=== PATIENT | female | born 1940 | race African-American/Black ===

== ENCOUNTER 2018-04-26 01:18 | Observation (INO) | payer BC ==
[2018-04-26] MEDS ORDERED: LORazepam 2 MG/ML VIAL ONE (02:16)
[2018-04-26] MEDS ORDERED: LEVETIRACETAM 500 MG/5 ML VIAL IV ONE (02:16)
[2018-04-26] MEDS ORDERED: NA CHLORIDE 0.9% 1,000 ML ONE (02:17)
[2018-04-26] MEDS ORDERED: NA CHLORIDE 0.9% 100 ML IV ONE (02:24)
[2018-04-26 02:36] LABS: Absolute Lymphocytes (CBC) 1.5 K/uL (0.7-4.9); Absolute Monocytes 0.5 K/uL (0.1-1.3); Absolute Neutrophil 2.7 K/uL (1.8-8.0); Basophils % 1.6 % (0-1.3); Eosinophils % 4.1 % (0-4.4); Hematocrit 37.2 % (36.0-45.0); Lymphocytes % 30.1 % (15.3-44.8); MCH 31.2 pg (27.0-35.0); MCV 93.6 fL (80-100); MPV 7.9 fL (7.6-11.3); Monocytes % 9.9 % (3.3-12.3); RBC Red Blood Cell Count 3.97 M/uL (3.86-4.86)
[2018-04-26 02:39] LABS: Protime INR 1.31
[2018-04-26 03:12] LABS: ALT/SGPT 14 U/L (12-78); AST/SGOT 11 U/L (15-37); Albumin 3.2 g/dL (3.4-5.0); Alkaline Phosphatase 106 U/L (45-117); BUN Blood Urea Nitrogen 14 mg/dL (7-18); Bicarbonate 32 mmol/L (21-32); Bilirubin Direct 0.1 mg/dL (0-0.2); Bilirubin Total 0.6 mg/dL (0.2-1.0); CKMB Creatine Kinase MB < 1.0 ng/mL (0.3-3.6); Creatine Phosphokinase 34 U/L (26-192); Glucose Level 105 mg/dL (74-106); Lipase 148 U/L (73-393); Magnesium 2.4 mg/dL (1.8-2.4); Potassium 3.4 mmol/L (3.5-5.1); Protein, Total 8.4 g/dL (6.4-8.2); Sodium Level 135 mmol/L (136-145)
--- NOTE | 2018-04-26 03:21 | EDPHYS ---
Physician Documentation [facility] Name: Domonique Herman Age: 77 yrs Sex: Female : 1940 Arrival Date: 04/26/2018 Time: 01:27 Bed 5 Private MD: Nikolas Stanley HPI: 04/26 01:59 This 77 yrs old Black Female presents to ER via EMS with complaints of Seizure. lesly 01:59 The patient presents after having a single isolated seizure, that lasted 10 minute(s), lesly with a history of multiple seizures, a total of 2. Character of seizure(s): Loss of consciousness: the patient experienced loss of consciousness, Motor activity: generalized, Incontinence: none, Apnea: the patient did not experience apnea. Seizure onset: just prior to arrival, 8 hour(s) ago. Context: the seizure(s) was witnessed, by family, daughter. Seizure Hx: Last seizure: The patient's last seizure was approximately 2 day(s) ago. Associated injury: The patient did not suffer any apparent associated injury. Current symptoms: Currently, the patient is not experiencing any symptoms, the patient feels back to baseline. The patient has not experienced similar symptoms in the past. Historical: - Allergies: 02:37 No Known Allergies; ao - Home Meds: 02:37 Keppra 100 mg/mL Oral soln 10 mL 2 times per day [Active]; Eliquis 5 mg oral tab 1 tab ao 2 times per day [Active]; aspirin 81 mg Oral chew 1 tab once daily [Active]; carvedilol 12.5 mg oral tab 1 tab 2 times per day [Active]; furosemide 40 mg Oral tab 1 tab once daily [Active]; simvastatin 40 mg Oral tab 1 tab once daily [Active]; lorazepam 0.5 mg Oral tab 1 tab 3 times per day [Active]; Januvia 100 mg oral tab 1 tab once daily [Active]; - PMHx: 02:37 Lung Cancer; Hypertension; Hyperlipidemia; CHF; Seizures; ao - PSHx: 02:37 Unable to obtain; ao - Immunization history:: Adult Immunizations unknown. - Social history:: Smoking status: Patient/guardian denies using tobacco, Patient/guardian denies using alcohol, street drugs. - Family history:: not pertinent. - Ebola Screening: : Patient negative for fever greater than or equal to 101.5 degrees Fahrenheit, and additional compatible Ebola Virus Disease symptoms Patient denies exposure to infectious person Patient denies travel to an Ebola-affected area in the 21 days before illness onset. ROS: 01:59 Constitutional: Negative for fever, chills, and weight loss, Eyes: Negative for injury, lesly pain, redness, and discharge, ENT: Negative for injury, pain, and discharge, Neck: Negative for injury, pain, and swelling, Cardiovascular: Negative for chest pain, palpitations, and edema, Respiratory: Negative for shortness of breath, cough, wheezing, and pleuritic chest pain, Abdomen/GI: Negative for abdominal pain, nausea, vomiting, diarrhea, and constipation, Back: Negative for injury and pain, : Negative for injury, bleeding, discharge, and swelling, MS/Extremity: Negative for injury and deformity, Skin: Negative for injury, rash, and discoloration, Psych: Negative for depression, anxiety, suicide ideation, homicidal ideation, and hallucinations, Allergy/Immunology: Negative for hives, rash, and allergies, Endocrine: Negative for neck swelling, polydipsia, polyuria, polyphagia, and marked weight changes. 01:59 Neuro: Positive for seizure activity. Exam: 01:59 Constitutional: This is a well developed, well nourished patient who is awake, alert, lesly and in no acute distress. Head/Face: Normocephalic, atraumatic. Eyes: Pupils equal round and reactive to light, extra-ocular motions intact. Lids and lashes normal. Conjunctiva and sclera are non-icteric and not injected. Cornea within normal limits. Periorbital areas with no swelling, redness, or edema. ENT: Nares patent. No nasal discharge, no septal abnormalities noted. Tympanic membranes are normal and external auditory canals are clear. Oropharynx with no redness, swelling, or masses, exudates, or evidence of obstruction, uvula midline. Mucous membranes moist. Neck: Trachea midline, no thyromegaly or masses palpated, and no cervical lymphadenopathy. Supple, full range of motion without nuchal rigidity, or vertebral point tenderness. No Meningismus. Chest/axilla: Normal chest wall appearance and motion. Nontender with no deformity. No lesions are appreciated. Cardiovascular: Regular rate and rhythm with a normal S1 and S2. No gallops, murmurs, or rubs. Normal PMI, no JVD. No pulse deficits. Respiratory: Lungs have equal breath sounds bilaterally, clear to auscultation and percussion. No rales, rhonchi or wheezes noted. No increased work of breathing, no retractions or nasal flaring. Abdomen/GI: Soft, non-tender, with normal bowel sounds. No distension or tympany. No guarding or rebound. No evidence of tenderness throughout. Back: No spinal tenderness. No costovertebral tenderness. Full range of motion. Female : Normal external genitalia. Skin: Warm, dry with normal turgor. Normal color with no rashes, no lesions, and no evidence of cellulitis. MS/ Extremity: Pulses equal, no cyanosis. Neurovascular intact. Full, normal range of motion. Neuro: Awake and alert, GCS 15, oriented to person, place, time, and situation. Cranial nerves II-XII grossly intact. Motor strength 5/5 in all extremities. Sensory grossly intact. Cerebellar exam normal. Normal gait. Psych: Awake, alert, with orientation to person, place and time. Behavior, mood, and affect are within normal limits. Vital Signs: 01:29 BP 152 / 82; Pulse 77; Resp 20; Temp 98.1(O); Pulse Ox 99% on 2 lpm NC; Pain 0/10; ao 03:21 BP 150 / 60; Pulse 79; Resp 16; Pulse Ox 99% on 2 lpm NC; Pain 0/10; ao 03:40 BP 134 / 76; Pulse 77; Resp 19; Pulse Ox 100% on 2 lpm NC; ao Loida Coma Score: 02:39 Eye Response: spontaneous(4). Verbal Response: confused(4). Motor Response: localizes ao pain(5). Total: 13. MDM: 01:45 Patient medically screened. [facility] 02:02 Data reviewed: vital signs, nurses notes, lab test result(s), EKG, radiologic studies, [facility] CT scan, plain films. 04/26 01:59 Order name: Basic Metabolic Panel; Complete Time: 03:20 lesly 04/26 01:59 Order name: CBC with Diff; Complete Time: 02:55 [facility] 04/26 01:59 Order name: Ckmb; Complete Time: 03:20 [facility] 04/26 01:59 Order name: CPK; Complete Time: 03:20 [facility] 04/26 01:59 Order name: LFT's; Complete Time: 03:20 [facility] 04/26 01:59 Order name: Magnesium; Complete Time: 03:20 [facility] 04/26 01:59 Order name: PT-INR; Complete Time: 02:55 [facility] 04/26 01:59 Order name: Ptt, Activated; Complete Time: 02:55 [facility] 04/26 01:59 Order name: Troponin (emerg Dept Use Only); Complete Time: 03:11 [facility] 04/26 01:59 Order name: XRAY Chest (1 view) [facility] 04/26 01:59 Order name: Lipase; Complete Time: 03:20 [facility] 04/26 01:59 Order name: Urine Culture [facility] 04/26 02:03 Order name: CT Head Brain wo Cont [facility] 04/26 03:18 Order name: Urine Dipstick--Ancillary (enter results) 04/26 01:59 Order name: EKG; Complete Time: 02:00 [facility] 04/26 01:59 Order name: Cardiac monitoring; Complete Time: 02:10 [facility] 04/26 01:59 Order name: EKG - Nurse/Tech; Complete Time: 02:52 [facility] 04/26 01:59 Order name: IV Saline Lock; Complete Time: 02:10 [facility] 04/26 01:59 Order name: Labs collected and sent; Complete Time: 02:27 [facility] 04/26 01:59 Order name: O2 Per Protocol; Complete Time: 02:10 [facility] 04/26 01:59 Order name: O2 Sat Monitoring; Complete Time: 02:10 [facility] 04/26 01:59 Order name: Urine Dipstick-Ancillary (obtain specimen); Complete Time: 03:18 [facility] 04/26 02:03 Order name: Seizure Precautions; Complete Time: 02:10 [facility] 04/26 03:27 Order name: CONS Physician Consult EDMS Administered Medications: 02:27 Drug: Ativan 0.5 mg Route: IVP; Site: right antecubital; ao 03:30 Follow up: Response: No adverse reaction ao 02:29 Drug: NS 0.9% 1000 ml Route: IV; Rate: 125 ml/hr; Site: right antecubital; ao 03:31 Follow up: IV Status: Infusion continued upon admission ao 02:30 Drug: Keppra 1000 mg Route: IV; Rate: per protocol; Site: right antecubital; ao 03:30 Follow up: IV Status: Completed infusion; IV Intake: 100ml ao 03:29 Drug: Rocephin - (cefTRIAXone) 1 grams Route: IVPB; Infused Over: 30 mins; Site: right ao antecubital; 04:00 Follow up: IV Status: Completed infusion ao 03:29 Drug: Potassium Chloride 20 mEq Route: PO; ao 04:00 Follow up: Response: No adverse reaction ao Disposition: 04/26/18 03:20 Hospitalization ordered by Jaime Holden for Observation. Preliminary diagnosis are Epilepsy and recurrent seizures, Weakness, Non-ST elevation (NSTEMI) myocardial infarction, Hypokalemia, Cystitis. - Bed requested for Telemetry/MedSurg (Inpatient). - Status is Observation. ao - Condition is Fair. - Problem is new. - Symptoms have improved. UTI on Admission? No Signatures: Dispatcher [employer] EDMS Belinda Gurrola RN RN mw Anderson, Corey, MD MD cha Ortiz, Alex, RN RN ao Corrections: (The following items were deleted from the chart) 03:23 03:20 Hospitalization Ordered by Jaime Holden MD for Observation. Preliminary lesly diagnosis is Epilepsy and recurrent seizures; Weakness; Non-ST elevation (NSTEMI) myocardial infarction. Bed requested for Telemetry/MedSurg (Inpatient). Status is Observation. Condition is Fair. Problem is new. Symptoms have improved. UTI on Admission? No. lesly 03:33 03:23 04/26/2018 03:20 Hospitalization Ordered by Jaime Holden MD for Observation. latrice Preliminary diagnosis is Epilepsy and recurrent seizures; Weakness; Non-ST elevation (NSTEMI) myocardial infarction; Hypokalemia; Cystitis. Bed requested for Telemetry/MedSurg (Inpatient). Status is Observation. Condition is Fair. Problem is new. Symptoms have improved. UTI on Admission? No. lesly 04:25 03:33 04/26/2018 03:20 Hospitalization Ordered by Jaime Holden MD for Observation. ao Preliminary diagnosis is Epilepsy and recurrent seizures; Weakness; Non-ST elevation (NSTEMI) myocardial infarction; Hypokalemia; Cystitis. Bed requested for Telemetry/MedSurg (Inpatient). Status is Observation. Condition is Fair. Problem is new. Symptoms have improved. UTI on Admission? No. latrice
--- NOTE | 2018-04-26 03:21 | ER ---
Nurse's Notes [facility] Name: Domonique Herman Age: 77 yrs Sex: Female : 1940 Arrival Date: 04/26/2018 Time: :27 Bed 5 Private MD: Diagnosis: Epilepsy and recurrent seizures;Weakness;Non-ST elevation (NSTEMI) myocardial infarction;Hypokalemia;Cystitis Presentation: 04/26 01:27 Presenting complaint: EMS states: Family report a history of seizure and tonight she ao had two seizures and family was worried about her. Patient has a history of lung cancer. Transition of care: patient was not received from another setting of care. Onset of symptoms is unknown. Risk Assessment: Do you want to hurt yourself or someone else? Patient reports no desire to harm self or others. Care prior to arrival: None. :27 Method Of Arrival: EMS: [facility] ao 01:27 Acuity: RIMA 2 ao 02:38 Initial Sepsis Screen: Does the patient meet any 2 criteria? No. Patient's initial ao sepsis screen is negative. Does the patient have a suspected source of infection? No. Patient's initial sepsis screen is negative. Triage Assessment: 02:39 General: Appears in no apparent distress. ao Historical: - Allergies: 02:37 No Known Allergies; ao - Home Meds: 02:37 Keppra 100 mg/mL Oral soln 10 mL 2 times per day [Active]; Eliquis 5 mg oral tab 1 tab ao 2 times per day [Active]; aspirin 81 mg Oral chew 1 tab once daily [Active]; carvedilol 12.5 mg oral tab 1 tab 2 times per day [Active]; furosemide 40 mg Oral tab 1 tab once daily [Active]; simvastatin 40 mg Oral tab 1 tab once daily [Active]; lorazepam 0.5 mg Oral tab 1 tab 3 times per day [Active]; Januvia 100 mg oral tab 1 tab once daily [Active]; - PMHx: 02:37 Lung Cancer; Hypertension; Hyperlipidemia; CHF; Seizures; ao - PSHx: 02:37 Unable to obtain; ao - Immunization history:: Adult Immunizations unknown. - Social history:: Smoking status: Patient/guardian denies using tobacco, Patient/guardian denies using alcohol, street drugs. - Family history:: not pertinent. - Ebola Screening: : Patient negative for fever greater than or equal to 101.5 degrees Fahrenheit, and additional compatible Ebola Virus Disease symptoms Patient denies exposure to infectious person Patient denies travel to an Ebola-affected area in the 21 days before illness onset. Screenin:38 Abuse screen: Denies threats or abuse. Denies injuries from another. Nutritional ao screening: No deficits noted. Tuberculosis screening: No symptoms or risk factors identified. Fall Risk Fall in past 12 months (25 points). Assessment: 02:00 General: Appears in no apparent distress. comfortable, Behavior is calm, listless, ao quiet. Pain: Denies pain. Neuro: Level of Consciousness is awake, confused, Oriented to person, Weakness Speech is normal. Cardiovascular: Capillary refill is > 3 seconds Patient's skin is warm and dry. Respiratory: Airway is patent Respiratory effort is even, unlabored, Respiratory pattern is regular, symmetrical. GI: Abdomen is obese. : No signs and/or symptoms were reported regarding the genitourinary system. EENT: No signs and/or symptoms were reported regarding the EENT system. Derm: Skin is intact, Skin temperature is warm. Musculoskeletal: Circulation, motion, and sensation intact. Range of motion: limited in all extremities. 03:21 Reassessment: Patient appears in no apparent distress at this time. Patient and/or ao family updated on plan of care and expected duration. Pain level reassessed. Obtained urine. Vital Signs: 01:29 BP 152 / 82; Pulse 77; Resp 20; Temp 98.1(O); Pulse Ox 99% on 2 lpm NC; Pain 0/10; ao 03:21 BP 150 / 60; Pulse 79; Resp 16; Pulse Ox 99% on 2 lpm NC; Pain 0/10; ao 03:40 BP 134 / 76; Pulse 77; Resp 19; Pulse Ox 100% on 2 lpm NC; ao Loida Coma Score: 02:39 Eye Response: spontaneous(4). Verbal Response: confused(4). Motor Response: localizes ao pain(5). Total: 13. ED Course: 01:27 Patient arrived in ED. ao 01:29 Triage completed. ao 01:30 Arm band placed on right wrist. Patient placed in an exam room, on a stretcher, on ao oxygen, Patient notified of wait time. 01:45 Nikolas Puente MD is Attending Physician. lesly 01:50 Inserted saline lock: 22 gauge in right antecubital area, using aseptic technique. [id number] Blood collected. 01:54 Navarro Reyes, RN is Primary Nurse. ao 02:25 Initial lab(s) drawn, by me, sent to lab. ks6 02:38 Fall risk band placed. Placed in gown. Bed in low position. Call light in reach. Side ao rails up X2. Adult w/ patient. Seizure precautions initiated. occupational therapy asst on. Pulse ox on. NIBP on. 02:49 Patient moved to radiology via stretcher. kw 02:49 X-ray completed. Patient tolerated procedure well. kw 02:[address] via stretcher. kw 02:51 XRAY Chest (1 view) In Process Unspecified. EDMS 03:08 CT Head Brain wo Cont In Process Unspecified. EDMS 03:19 Jaime Holden MD is Hospitalizing Provider. lesly 03:19 Straight cath inserted, using sterile technique, 16 Fr. ao 04:22 No provider procedures requiring assistance completed. Patient admitted, IV remains in ao place. Administered Medications: 02:27 Drug: Ativan 0.5 mg Route: IVP; Site: right antecubital; ao 03:30 Follow up: Response: No adverse reaction ao 02:29 Drug: NS 0.9% 1000 ml Route: IV; Rate: 125 ml/hr; Site: right antecubital; ao 03:31 Follow up: IV Status: Infusion continued upon admission ao 02:30 Drug: Keppra 1000 mg Route: IV; Rate: per protocol; Site: right antecubital; ao 03:30 Follow up: IV Status: Completed infusion; IV Intake: 100ml ao 03:29 Drug: Rocephin - (cefTRIAXone) 1 grams Route: IVPB; Infused Over: 30 mins; Site: right ao antecubital; 04:00 Follow up: IV Status: Completed infusion ao 03:29 Drug: Potassium Chloride 20 mEq Route: PO; ao 04:00 Follow up: Response: No adverse reaction ao Intake: 03:30 IV: 100ml; Total: 100ml. ao Outcome: 03:20 Decision to Hospitalize by Provider. lesly 04:24 Admitted to Med/surg accompanied by tech, room 229, with oxygen, with chart, Report ao called to DAYANA Coffman 04:24 Condition: stable 04:24 Instructed on the need for admit. 04:25 Patient left the ED. ao Signatures: Dispatcher [employer] EDNikolas Estrada MD MD cha Whitley, Kimberlee kw Ortiz, Alex, RN RN ao Stevenson, Kyle Corrections: (The following items were deleted from the chart) 02:26 02:25 Inserted saline lock: 22 gauge in right antecubital area, using aseptic ks6 technique. Blood collected. : 02:25 Initial lab(s) drawn, by me, sent to lab. ks
[2018-04-26] MEDS ORDERED: CEFTRIAXONE/SWI 1gm 1 GM/10 ML SYR ONE (03:27)
[2018-04-26] MEDS ORDERED: POTASSIUM CL SA 10 MEQ TAB PO ONE ×2 (03:27→08:07)
[2018-04-26] MEDS ORDERED: D50W 25 GM/50 ML SYRINGE IV PRN (03:29)
[2018-04-26] MEDS ORDERED: GLUCAGON 1 MG/VIAL IM PRN (03:29)
[2018-04-26] MEDS: NA CHLORIDE 0.9% 1,000 ML IV SCH ×3 (04:00→21:49)
[2018-04-26] MEDS ORDERED: ONDANSETRON 4 MG/2 ML VIAL IV PRN (04:01)
[2018-04-26] MEDS ORDERED: ALPRAZOLAM 0.25 MG TABLET PO PRN (04:01)
[2018-04-26] MEDS ORDERED: ACETAMINOPHEN 500 MG TAB PO PRN (04:01)
[2018-04-26 05:29] LABS: Urine Blood 3+ (NEG); Urine Glucose TRACE (NEG); Urine Protein 1+ (NEG); Urine Specific Gravity 1.025 (1.005-1.030); Urine pH 5.5 (5.0-7.0)
[2018-04-26] MEDS ORDERED: CARVEDILOL 12.5 MG TAB PO SCH (06:00)
--- NOTE | 2018-04-26 06:36 | EKG ---
Test Date: 2018-04-26 Test Time: 02:54:33 Toxicologist: SUSY MEASUREMENT RESULTS: Intervals: Rate: 80 MI: 228 QRSD: 102 QT: 390 QTc: 449 Strunk: P: 63 MI: 228 QRS: 5 T: 54 INTERPRETIVE STATEMENTS: Sinus rhythm with 1st degree AV block with premature atrial complexes Low voltage QRS Borderline ECG No previous ECG available for comparison Electronically Signed On 04-26-18 06:35:49 CDT by Wade High
--- NOTE | 2018-04-26 07:11 | P.HP ---
Certification for Inpatient Patient admitted to: Observation With expected LOS: <2 Midnights Patient will require the following post-hospital care: None Practitioner: I am a practitioner with admitting privileges, knowledge of patient current condition, hospital course, and medical plan of care. Services: Services provided to patient in accordance with Admission requirements found in Title 42 Section 412.3 of the Code of Federal Regulations Patient History Date of Service: 04/26/18 Reason for admission: Seizures History of Present Illness: Patient is a 77-year-old female who comes here from [place]. Patient has a history of seizure disorder which was diagnosed a year ago. At that time she had been found have lung cancer and was treated with chemotherapy and radiation. She did well with her treatment and apparently according to the daughters she has been cured. She has been on anti epileptics for this seizure disorder which started a year ago. She was visiting from [place] this past week. She started having seizures on Monday. They notified her physician. This seizures continued through last night so they brought her into the emergency room for evaluation. At this time will go ahead and work her up with EEG and MRI. Patient is claustrophobic so will sifter and miller some Ativan prior to the MRI. Consultation with Neurology as well. Currently patient is lethargic after being given medication for her seizures. Most of the history was obtained from her 2 daughters who are at bedside. Allergies No Known Allergies Allergy (Verified 04/26/18 05:50) Home Medications: Apixaban [Eliquis] 5 mg PO DAILY 04/26/18 Aspirin 1 pill PO DAILY 04/26/18 Carvedilol [Coreg*] 1 pill PO DAILY 04/26/18 Furosemide 1 pill PO DAILY 04/26/18 Lacosamide [Vimpat] 5 ml PO BID 04/26/18 Levetiracetam [Keppra] 100 mg PO BID 04/26/18 Potassium Chloride [Klor-Con 10] 1 pill PO DAILY 04/26/18 Simvastatin 1 pill PO BEDTIME 04/26/18 Sitagliptin Phosphate [Januvia] 100 mg PO DAILY 04/26/18 - Past Medical/Surgical History Diabetic: Yes -: Lung CA -: hyperlipidemia -: HTN -: seizure disorder -: DM Past Surgical History: Unable to obtain - Family History Father Family History: Reviewed- Non-Contributory - Social History Smoking Status: Former smoker Alcohol use: No CD- Drugs: No Caffeine use: No Place of Residence: Home Review of Systems 10-point ROS is otherwise unremarkable Physical Examination - Vital Signs Temperature: 97.1 F Blood Pressure: 129/69 Pulse: 79 Respirations: 16 Pulse Ox (%): 99 - Physical Exam General: Alert, In no apparent distress, Oriented x3 HEENT: Atraumatic, PERRLA, Mucous membr. moist/pink, EOMI, Sclerae nonicteric Neck: Supple, 2+ carotid pulse no bruit, No LAD, Without JVD or thyroid abnormality Respiratory: Clear to auscultation bilaterally, Normal air movement Cardiovascular: Regular rate/rhythm, Normal S1 S2, No murmurs Gastrointestinal: Normal bowel sounds, Soft and benign, Non-distended, No tenderness Musculoskeletal: No clubbing, No swelling, No tenderness Integumentary: No rashes Neurological: Normal gait, Normal speech, Normal strength at 5/5 x4 extr, Normal tone, Sensation intact, Cranial nerves 3-12 intact, Normal affect Lymphatics: No axilla or inguinal lymphadenopathy - Studies Laboratory Data (last 24 hrs) 04/26/18 01:50: PT 15.5 H, INR 1.31, APTT 33.2 04/26/18 01:50: WBC 4.9, Hgb 12.4, Hct 37.2, Plt Count 140 L 04/26/18 01:50: Sodium 135 L, Potassium 3.4 L, BUN 14, Creatinine 0.70, Glucose 105, Magnesium 2.4, Total Bilirubin 0.6, AST 11 L, ALT 14, Alkaline Phosphatase 106, Lipase 148 Assessment & Plan - Problems (Diagnosis) (1) Status epilepticus Current Visit: Yes Status: Acute (2) History of lung cancer Current Visit: Yes Status: Acute (3) History of hypertension Current Visit: Yes Status: Acute (4) History of diabetes mellitus Current Visit: Yes Status: Acute - Plan Plan: 1. Resume anti epileptics. 2. EEG and MRI 3. Gentle hydration 4. Monitor for infection 5. History of lung cancer need to rule out metastasis to the brain 6. Monitor blood pressure and blood sugar closely 7. Discuss with patient regarding history of anti coagulation use 8. Ativan as needed for MRI 9. GI and DVT prophylaxis Discharge Plan: Home Plan to discharge in: 48 Hours - Advance Directives Does patient have a Living Will: No Does patient have a Durable POA for Healthcare: No - Code Status/Comfort Care Code Status Assessed: Yes Code Status: Full Code Time Spent Managing PTS Care (In Minutes): 50
[2018-04-26] MEDS ORDERED: LORazepam 2 MG/ML VIAL IV PRN (07:15)
[2018-04-26] MEDS: INSULIN -REGULAR HUMAN 50 UNIT/0.5 ML ML SQ SCH ×4 (07:30→21:00)
[2018-04-26] MEDS ORDERED: LORazepam 2 MG/ML VIAL IV ONE (08:24)
--- NOTE | 2018-04-26 08:44 | RAD REPORT ---
EXAM DESCRIPTION: RAD - Chest Single View - 04/26/2018 2:51 am CLINICAL HISTORY: COUGH Chest pain. COMPARISON: No comparisons FINDINGS: Portable technique limits examination quality. The lungs are grossly clear. The heart is normal in size. No displaced fractures.Left-sided port cath eter its tip in the SVC. IMPRESSION: No acute intrathoracic process suspected.
--- NOTE | 2018-04-26 08:45 | RAD REPORT ---
EXAM DESCRIPTION: CT - Head Brain Wo Cont - 04/26/2018 6:53 am CLINICAL HISTORY: SEIZURE History of lung carcinoma. COMPARISON: No comparisons TECHNIQUE: All CT scans are performed using dose optimization technique as appropriate and may inclu de automated exposure control or mA/KV adjustment according to patient size. FINDINGS: No intracranial hemorrhage, hydrocephalus or extra-axial fluid collection.Mild generalized brain atrophy is present with mild periventricular and deep white matter chronic microvascular [place] changes.No areas of brain edema or evidence of midline shift. Chronic opacification left sphenoid sinus suspected. The paranasal sinuses and mastoids are otherwise clear. The calvarium is intact. Right globe prosthesis. IMPRESSION: No acute intracranial abnormality.
[2018-04-26 08:51] LABS: CKMB Creatine Kinase MB < 1.0 ng/mL (0.3-3.6); Creatine Phosphokinase 31 U/L (26-192)
[2018-04-26] MEDS ORDERED: APIXABAN 5 MG TABLET PO SCH (09:00)
[2018-04-26] MEDS: LACOSAMIDE PO SCH ×2 (09:00→21:00)
[2018-04-26] MEDS ORDERED: ENOXAPARIN 40 MG/0.4 ML SQ SCH (09:00)
[2018-04-26] MEDS ORDERED: FUROSEMIDE 20 MG TABLET PO SCH (09:00)
--- NOTE | 2018-04-26 10:21 | RAD REPORT ---
EXAM DESCRIPTION: MRI - Brain Wo Cont - 04/26/2018 10:02 am CLINICAL HISTORY: sz Seizure disorder. COMPARISON: Head Brain Wo Cont dated 04/26/2018 TECHNIQUE: Multi-sequence, multiplanar MR imaging of the brain was performed without contrast. FINDINGS: The examination is quite motion degraded. This significantly limits the quality of the angélica dy. Grossly, no hemorrhage, hydrocephalus, midline shift. There is questionable increased signal in the m edial left temporal lobe. Both mastoid air cells appear partially opacified with fluid. IMPRESSION: Significantly motion degraded study is submitted. Questionable increased FLAIR signal in the medial left temporal lobe seen. Bilateral mastoid fluid.
[2018-04-26] MEDS ORDERED: KCL 20 MEQ/100 mL IVPB 20 MEQ/100 ML BAG IV SCH (11:00)
--- NOTE | 2018-04-26 12:43 | ECHO ---
HEIGHT: 5 ft 5 in WEIGHT: 166 lb 6.4 oz DATE OF STUDY: 04/26/[address]: Nikolas Puente MD 2-DIMENSIONAL: YES M.MODE: YES DOPPLER: YES COLOR FLOW: YES TDS: NO PORTABLE: NO DEFINITY: NO BUBBLE STUDY: NO DIAGNOSIS: CHEST PAIN CARDIAC HISTORY: CATHERIZATION: NO SURGERY: NO PROSTHETIC VALVE: NO PACEMAKER: NO MEASUREMENTS (cm) DIASTOLIC (NORMALS) SYSTOLIC (NORMALS) IVSd 1.0 (0.6-1.2) LA Diam 3.9 (1.9-4.0) LVEF 69% LVIDd 3.7 (3.5-5.7) LVIDs 2.3 (2.0-3.5) %FS 38% LVPWd 1.2 (0.6-1.2) Ao Diam 2.7 (2.0-3.7) 2 DIMENSIONAL ASSESSMENT: RIGHT ATRIUM: NORMAL LEFT ATRIUM: NORMAL RIGHT VENTRICLE: NORMAL LEFT VENTRICLE: NORMAL TRICUSPID VALVE: NORMAL MITRAL VALVE: NORMAL PULMONIC VALVE: NORMAL AORTIC VALVE: NORMAL PERICARDIAL EFFUSION: NONE AORTIC ROOT: NORMAL LEFT VENTRICULAR WALL MOTION: NORMAL DOPPLER/COLOR FLOW: NORMAL COMMENTS: TECHNICALLY DIFFICULT STUDY. NORMAL LEFT VENTRICULAR SIZE AND FUNCTION. NO WALL MOTION ABNORMALITY. NO MITRAL VALVE PROLAPSE. TECHNOLOGIST: Willow CARIAS
[2018-04-26] MEDS: LACOSAMIDE 50 MG TABLET PO SCH ×2 (15:12→21:51)
[2018-04-26] MEDS: levETIRAcetam 500 MG TAB PO SCH ×2 (15:13→21:51)
[2018-04-26] MEDS: POTASSIUM 25 MEQ EFFERV TAB PO SCH ×2 (15:13→21:50)
[2018-04-26 16:26] LABS: CKMB Creatine Kinase MB < 1.0 ng/mL (0.3-3.6); Creatine Phosphokinase 52 U/L (26-192)
[2018-04-26] MEDS ORDERED: ATORVASTATIN 20 MG TAB PO SCH (21:00)
--- NOTE | 2018-04-27 02:16 | CON ---
Reason For Consultation: Consultation called because of seizures. History Of Present Illness: Ms. Herman is a 77-year-old patient with a history of a reported fall. No te, this history is provided by the patient's daughters who is at the bedside. This fall occurred wh ile she is in [place] where she lives over a year ago and subsequently there was seizure. The blake ent had 1 seizure while in [place] and the daughter is unable to give any details about the patient 's workup or the type of seizure, but she was put on Keppra for seizures. She has been taking just 1 00 mg twice daily of Keppra. The patient actually did well with regard to seizures until she travell ed to [place] to visit family and is planning to go to a family reunion. The patient's daughter said t hat seizure consisted of generalized shaking that lasted quite a long while, perhaps through the nigh t, and the patient was brought in to [facility] for an evaluation. Her head CT scan showed no acute ischemic or hemorrhagic change. There is mild generalized brain atrophy, chronic small vess el ischemic disease. Her brain MRI did show significant motion artifact degradation, and of note, wa s questionable increased FLAIR signal in the medial left temporal lobe. Her electrocardiogram showed sinus rhythm, voltage QRS complexes, and echocardiogram was a technically difficult study with 69% e jection fraction. Laboratory Studies: That showed essentially unremarkable complete blood count with differential, coa gulation panel was normal. Chemistries showed low potassium of 3.4. Liver function study is essenti ally unremarkable. Urine did show 3+ blood, 1+ esterase, and cultures are pending. She was diagnose d with a urinary tract infection and given 1 g of Rocephin and admitted for IV hydration and placed o n Keppra 1000 mg twice daily along with Vimpat 100 mg twice daily which she has continued and there h as been no seizure activity noted in the hospital. Daughter does note that she is somewhat sleepy bu t does react appropriately to the family, and at times when nurses come in or when she is being evalu ated, she is not going to do what is requested of her. Past Medical History: Dyslipidemia, hypertension, seizures, diabetes mellitus, lung cancer treated w ith chemo and radiation. Home Medications: Eliquis 5 mg daily, aspirin 81 mg daily, Coreg daily, furosemide 40 mg daily, Vimp at 5 mL twice daily, Keppra 1000 mg twice daily, potassium 10 mEq daily, simvastatin 40 mg daily, and Januvia 100 mg daily. Family History: Noncontributory. Social History: No current smoking, smoked in the past. Lives in [place]. No alcohol use. Review of Systems: Family denies any recent fevers or chills, nausea or vomiting. No myalgias, arthralgias, rash, weigh t change, or headache. No psychiatric issues or gastrointestinal issues. Physical Examination: Vital Signs: Blood pressure 103/58, pulse 72, respiratory rate 18, temperature 97.6, oxygen saturati on 98% via oxygen 2 L nasal cannula, weight 166 pounds, height 5 feet 5 inches, BMI 27.7. General: Ms. Youssef is resting in bed. She does answer appropriately to her name and identifies her daughter appropriately. She follows simple commands but at times refuses to follow more commands lik e just to extend the arms to be able to assess for strength, but she will pull equally well away with both arms. She did no feet, although mildly but equally well, and she is unable to fully assess str ength, coordination, and sensation. She has normal tone in the upper and lower extremities. Assessment: Ms. 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 No evidence at this time o f bleeding or brain injury and lung cancer that has been treated with chemotherapy and radiation and travel out of town from [place] and reportedly compliant with antiepileptic medications. Plan: 1.The patient should be continued on her antiepileptic medications. It is possible that the urinary tract infection lowered her seizure threshold and increased the chances of seizures, so continue wit h antibiotics as appropriate. 2.Continue with both Vimpat and Keppra as appropriate dosages as she was on prior to admission. May consider going up on Vimpat to 300 total daily. 3.The patient's daughter was counseled on the importance of medication compliance, reducing stress, treating potential infection, especially of the bladder with cranberry pills 400 mg twice daily and p ushing at least 8 glasses of water daily. When discharged, she should follow up with her neurologist in [place]. RICCARDO/COLLIN Voice ID: [id number] Report ID: [id number]
[2018-04-27 04:50] LABS: Absolute Lymphocytes (CBC) 1.3 K/uL (0.7-4.9); Absolute Monocytes 0.5 K/uL (0.1-1.3); Absolute Neutrophil 2.3 K/uL (1.8-8.0); Basophils % 0.5 % (0-1.3); Eosinophils % 4.8 % (0-4.4); Hematocrit 35.5 % (36.0-45.0); Lymphocytes % 30.4 % (15.3-44.8); MCH 30.8 pg (27.0-35.0); MCV 94.8 fL (80-100); MPV 7.6 fL (7.6-11.3); Monocytes % 11.8 % (3.3-12.3); RBC Red Blood Cell Count 3.74 M/uL (3.86-4.86)
[2018-04-27 05:01] LABS: ALT/SGPT 13 U/L (12-78); AST/SGOT 19 U/L (15-37); Alkaline Phosphatase 105 U/L (45-117); BUN Blood Urea Nitrogen 8 mg/dL (7-18); Bicarbonate 30 mmol/L (21-32); Bilirubin Total 0.8 mg/dL (0.2-1.0); Glucose Level 118 mg/dL (74-106); Magnesium 2.3 mg/dL (1.8-2.4); Phosphorus 2.8 mg/dL (2.5-4.9); Potassium 3.8 mmol/L (3.5-5.1); Protein, Total 7.9 g/dL (6.4-8.2); Sodium Level 140 mmol/L (136-145)
[2018-04-27] MEDS: INSULIN -REGULAR HUMAN 50 UNIT/0.5 ML ML SQ SCH ×3 (07:30→16:08)
--- NOTE | 2018-04-27 07:42 | EEG ---
CHART: [id number] TEST ID#: [id number] DATE OF STUDY: 04/26/2018 THE EEG WAS RECORDED PORTABLE IN THE PATIENTS ROOM ON A 17 CHANNEL MACHINE. ELECTRODES WERE APPLIED IN THE USUAL MANNER USING THE INTERNATIONAL 10-20 SYSTEM. THE WAKING BACKGROUND RHYTHM IN THIS RECORD CONSISTS OF WELL DEVELOPED AND WELL ORGANIZED WAVES OF 9 HZ., MAXIMAL IN THE POSTERIOR HEAD REGIONS WHICH ATTENUATE NORMALLY WITH EYE OPENING. LOW-VOLTAGE 18-22 HZ ACTIVITY IS EXPRESSED IN THE FRONTAL REGIONS. THERE ARE NO FOCAL OR LATERALIZING FEATURES. NO EPILEPTIFORM ACTIVITY APPEARS. SLEEP DID NOT OCCUR. HYPERVENTILATION WAS NOT PERFORMED. PHOTIC STIMULATION PRODUCED POOR DRIVING BILATERALLY. IMPRESSION: NORMAL EEG FOR THE AGE OF THE PATIENT IN [place].
[2018-04-27] MEDS ORDERED: FUROSEMIDE 40 MG TABLET PO SCH (09:00)
[2018-04-27] MEDS ORDERED: APIXABAN 5 MG TABLET PO SCH (09:00)
[2018-04-27] MEDS ORDERED: CARVEDILOL 12.5 MG TAB PO SCH (09:00)
[2018-04-27] MEDS: LACOSAMIDE PO SCH (09:00)
[2018-04-27] MEDS ORDERED: ASPIRIN 81 MG CHEWABLE TABLET PO SCH (09:00)
[2018-04-27] MEDS: POTASSIUM 25 MEQ EFFERV TAB PO SCH (10:44)
[2018-04-27] MEDS: LACOSAMIDE 50 MG TABLET PO SCH (10:44)
[2018-04-27] MEDS: levETIRAcetam 500 MG TAB PO SCH (10:44)
--- NOTE | 2018-04-27 11:13 | EKG ---
Test Date: 2018-04-27 Test Time: 02:12:59 Topographical Engineer: RT-O MEASUREMENT RESULTS: Intervals: Rate: 91 ID: QRSD: [id number] QT: 372 QTc: 457 [place]: P: ID: [id number] T: 42 INTERPRETIVE STATEMENTS: Atrial fibrillation Intraventricular conduction delay Nonspecific T wave abnormality, probably digitalis effect Abnormal ECG Compared to ECG 04/26/2018 02:54:33 T-wave abnormality now present Sinus rhythm no longer present Electronically Signed On 04-27-18 11:13:21 CDT by Wade High
[2018-04-27] MEDS ORDERED: HEPARIN 500 UNIT/5 ML SYR IV PRN (15:11)
--- NOTE | 2018-04-27 15:13 | P.SSS ---
Patient History Date of Service: 04/27/18 Primary Care Provider: PCP in [facility] Reason for admission: Seizures History of Present Illness: Patient is a 77-year-old female who comes here from [place]. Patient has a history of seizure disorder which was diagnosed a year ago. At that time she had been found have lung cancer and was treated with chemotherapy and radiation. She did well with her treatment and apparently according to the daughters she has been cured. She has been on anti epileptics for this seizure disorder which started a year ago. She was visiting from [place] this past week. She started having seizures on Monday. They notified her physician. This seizures continued through last night so they brought her into the emergency room for evaluation. At this time will go ahead and work her up with EEG and MRI. Patient is claustrophobic so will sales teacher some Ativan prior to the MRI. Consultation with Neurology as well. Currently patient is lethargic after being given medication for her seizures. Most of the history was obtained from her 2 daughters who are at bedside. Allergies No Known Allergies Allergy (Verified 04/26/18 05:50) Home Medications: Apixaban [Eliquis] 5 mg PO DAILY 04/26/18 Aspirin 1 pill PO DAILY 04/26/18 Carvedilol [Coreg*] 1 pill PO DAILY 04/26/18 Furosemide 1 pill PO DAILY 04/26/18 Levetiracetam [Keppra] 100 mg PO BID 04/26/18 Potassium Chloride [Klor-Con 10] 1 pill PO DAILY 04/26/18 Simvastatin 1 pill PO BEDTIME 04/26/18 Sitagliptin Phosphate [Januvia] 100 mg PO DAILY 04/26/18 Amox Tr/Potassium Clavulanate [Augmentin 250-62.5 Tab Chew] 1 each PO BID #10 tab.chew 04/27/18 Lacosamide [Vimpat*] 150 mg PO BID #180 tablet 04/27/18 - Past Medical/Surgical History Diabetic: Yes -: Lung CA -: hyperlipidemia -: HTN -: seizure disorder -: DM - Social History Smoking Status: Former smoker Alcohol use: No CD- Drugs: No Caffeine use: No Place of Residence: Home Review of Systems General: As per HPI Physical Examination - Vital Signs Temperature: 97.1 F Blood Pressure: 138/78 Pulse: 76 Respirations: 18 Pulse Ox (%): 97 - Physical Exam General: Alert, In no apparent distress HEENT: Atraumatic, PERRLA, Mucous membr. moist/pink, EOMI, Sclerae nonicteric Neck: Supple, 2+ carotid pulse no bruit, No LAD, Without JVD or thyroid abnormality Respiratory: Clear to auscultation bilaterally, Normal air movement Cardiovascular: Regular rate/rhythm, Normal S1 S2 Gastrointestinal: Normal bowel sounds, No tenderness Musculoskeletal: No tenderness Integumentary: No rashes Neurological: Normal gait, Normal speech, Normal strength at 5/5 x4 extr, Normal tone, Normal affect Lymphatics: No axilla or inguinal lymphadenopathy - Diagnosis (Problem(s)) (1) UTI (urinary tract infection) Current Visit: Yes Status: Acute Qualifiers: Urinary tract infection type: acute cystitis Hematuria presence: without hematuria Qualified Code(s): N30.00 - Acute cystitis without hematuria (2) Status epilepticus Onset Date: 04/26/18 Current Visit: Yes Status: Resolved (3) History of lung cancer Onset Date: 04/26/18 Current Visit: Yes Status: Chronic (4) History of hypertension Onset Date: 04/26/18 Current Visit: Yes Status: Chronic (5) History of diabetes mellitus Onset Date: 04/26/18 Current Visit: Yes Status: Chronic Treatment Summary: Overall During the hospital stay Pt remained stable. 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 MRI, CT and EEG Done here in the hospital which was negative for acute abnormality. Pt remained seziure free in the hospital. Neurology was consulted and reccs patient to continue on her antiepileptic medications with increase dose for Vimpat to 300mg Daily. It is possible that the urinary tract infection lowered her seizure threshold and increased the chances of seizures, so Patient was started on Antibiotics. The patient's daughter was counseled on the importance of medication compliance, reducing stress, treating potential infection, especially of the bladder with cranberry pills 400 mg twice daily and pushing at least 8 glasses of water daily. Pt was then Discharged home under stable condition and pt was asked to follow up with her neurologist in [place]. PO levaquin was also prescribed for UTI. Uculture was negative however it was collected after antibiotics was started. - Disposition Disposition: ROUTINE DISCHARGE Condition: GOOD Patient Discharge Instructions: Please f.u with neurologist in 1 to 2 week post discharge. New medication. Augmentin BID for 5 days. Vimpat is increased to 150mg twice daily in pill form. Do not take liquid any more. Diet: Regular Activity: Ad nanda
--- NOTE | 2018-04-28 13:36 | CON ---
Date of Consultation: 04/27/2018 Additional Admitting Physician: Irene Sagastume M.D. History Of Present Illness: She is a 77-year-old black woman with history of seizure disorder, atria l fibrillation, lives in [place]. Normally, she is undergoing chemotherapy and radiation therapy f or lung cancer. Has a history of chronic systolic congestive heart failure as well, as well history of anxiety, hypertension, dyslipidemia, and diabetes, came in with seizure. Dr. Potts was evaluat ing her. He is considering increasing one of her seizure medication Vimpat. She has had a negative MRI and negative CT of her head, normal EKG, normal chest x-ray and normal echocardiogram. Her EKGs show chronic atrial fibrillation that have been actually intermittent. The patient takes Eliquis for atrial fibrillation. Medications: Other medications include aspirin, Keppra, Abilify, Coreg, Lasix, Zocor, and pyridium. Allergies: NONE. Review of Systems: Negative. Social History: Negative. Family History: Negative. Physical Examination: Vital Signs: Stable. She was afebrile. HEENT: Negative. Neck: Supple. No bruit. Chest: Clear. Cardiac exam: Revealed a regular rhythm and rate. No murmurs, gallops, or rubs. Abdomen: Benign. Extremities: Revealed no clubbing, cyanosis, or edema. Laboratory Evaluation: Unremarkable except for a troponin of 0.11. Impression And Plan: 1.Paroxysmal atrial fibrillation. 2.History of chronic diastolic congestive heart failure. 3.Elevated troponin probably secondary to atrial fibrillation and maybe even seizure disorder. 4.History of lung cancer on chemotherapy and radiation therapy. 5.Hypertension. 6.Dyslipidemia. 7.Diabetes. I would not do anything different from a cardiovascular standpoint. She needs to remain on Eliquis a nd her beta-real. She is in normal rhythm now. We can always increase her beta real as needed . She can go home it is okay with Dr. Sagastume. NORBERT/COLLIN Voice ID: [id number] Report ID: [id number]
== END 2018-04-27 17:11 | disposition home or self-care (01) ==
LOC: ER 01:18 → ERHOLD 03:25 → 2ND 04:04
PROVIDERS: ADMIT Hospitalist; ATTEND Hospitalist
DX: N30.00 Acute cystitis without hematuria (principal); G40.901 Epilepsy, unspecified, not intractable, with status epilepticus; I10 Essential (primary) hypertension; E78.5 Hyperlipidemia, unspecified; E11.9 Type 2 diabetes mellitus without complications; Z87.891 Personal history of nicotine dependence; Z85.118 Personal history of other malignant neoplasm of bronchus and lung
CPT/HCPCS: 36415; 51702; 70450; 70551; 71045; 80048; 80053; 80076; 81003; 82550; 82553; 82962; 83690; 83735; 84100; 84132; 84484; 85025; 85610; 85730; 87086; 87088; 93005; 93306; 95816; 96361; 96365; 96368; 96375; 99285; G0378; J0696; J1642; J1953; J7030

== ENCOUNTER 2024-04-29 11:06 | Observation (INO) | payer BC ==
[2024-04-29 11:43] LABS: Absolute Eosinophils 0.1 K/uL (0-0.5); Absolute Lymphocytes (CBC) 1.2 K/uL (0.7-4.9); Absolute Monocytes 0.4 K/uL (0.1-1.3); Absolute Neutrophil 2.2 K/uL (1.8-8.0); Basophils % 0.9 % (0-1.3); Eosinophils % 1.8 % (0-4.4); Hematocrit 38.9 % (36.0-45.0); Lymphocytes % 30.6 % (15.3-44.8); MCH 30.9 pg (27.0-35.0); MCHC 33.5 g/dL (32.0-36.0); MCV 92.2 fL (80-100); MPV 7.7 fL (7.6-11.3); Monocytes % 11.2 % (3.3-12.3); Neutrophils % 55.5 % (41.7-73.7); Platelets 132 thou/uL (152-406); RBC Red Blood Cell Count 4.22 M/uL (3.86-4.86); Red Cell Distribution Width 13.8 % (12.1-15.2)
[2024-04-29] MEDS ORDERED: NA CHLORIDE 0.9% 1,000 ML ONE (11:56)
[2024-04-29 12:05] LABS: Albumin 2.9 g/dL (3.4-5.0); Albumin/Globulin Ratio 0.6 (1.1-1.8); Anion Gap 4.6 mEq/L (5.0-15.0); Bilirubin Direct 0.3 mg/dL (0-0.2); Bilirubin Indirect, Calculated 0.8 mg/dL (0.2-0.8); Bilirubin Total 1.1 mg/dL (0.2-1.0); Globulin 4.7 g/dL (2.3-3.5); Magnesium 2.1 mg/dL (1.6-2.4); Potassium 3.6 mEq/L (3.5-5.1); Protein, Total 7.6 g/dL (6.4-8.2)
--- NOTE | 2024-04-29 12:32 | RAD REPORT ---
EXAM DESCRIPTION: CT - Head Brain Wo Cont - 04/29/2024 11:40 am CLINICAL HISTORY: ams COMPARISON: Head Brain Wo Cont dated 04/26/2018; Brain Wo Cont dated 04/26/2018 TECHNIQUE: Noncontrast head CT images were obtained without IV contrast. Multiplanar reformats were generated and reviewed. All CT scans are performed using dose optimization technique as appropriate and may include automated exposure control or mA/KV adjustment according to patient size. FINDINGS: No intracranial hemorrhage, mass, or edema. Midline structures are unremarkable. Normal ventricular caliber for age. Arnold-white matter differentiation is preserved, without evidence of acute infarct. No abnormal extra- axial fluid collections. Mastoid air cells are well aerated. New complete opacification of the sphenoid sinuses bilaterally. Right ocular implant in place. No acute bony findings. IMPRESSION: No evidence of an acute intracranial process. New complete opacification of the sphenoid sinuses bilaterally, please correlate for signs/symptoms o f acute sinusitis.
--- NOTE | 2024-04-29 12:54 | RAD REPORT ---
EXAM DESCRIPTION: Alfonsot Single View04/29/2024 11:45 am CLINICAL HISTORY: ams COMPARISON: Chest Single View dated 04/26/2018 TECHNIQUE: Portable AP view of the chest. FINDINGS: Developing patchy right basilar airspace opacity, with mild central interstitial prominenc e. Right 6- 8th rib mildly displaced fractures. No pneumothorax or effusion. The cardiomediastinal c ontours are unremarkable. IMPRESSION: Right 6 to 8th rib mildly displaced fractures. Developing patchy right basilar airspace opacity with mild central interstitial prominence, could ref lect combination of central congestion and atelectasis.
--- NOTE | 2024-04-29 16:51 | ER ---
Nurse's Notes [facility] Name: Domonique Herman Age: 83 yrs Sex: Female : 1940 Arrival Date: 04/29/2024 Time: 11:06 Bed 5 Private MD: Diagnosis: Altered mental status;Syncope;Elevated troponin Presentation: 04/29 11:19 Chief complaint: EMS states: toned out to patient home for syncopal episode - upon ems ld1 arrival to home pt was unresponsive. Responsive at time of arrival to ER. Coronavirus screen: At this time, the client does not indicate any symptoms associated with coronavirus-19. Ebola Screen: No symptoms or risks identified at this time. Initial Sepsis Screen: Does the patient meet any 2 criteria? No. Patient's initial sepsis screen is negative. Does the patient have a suspected source of infection? No. Patient's initial sepsis screen is negative. Risk Assessment: Do you want to hurt yourself or someone else? Patient reports no desire to harm self or others. Onset of symptoms was April 29, 2024. 11:19 Method Of Arrival: EMS: [facility] ld1 11:19 Acuity: RIMA 2 ld1 Triage Assessment: 11:20 General: Appears in no apparent distress. comfortable, Behavior is calm, cooperative, ld1 appropriate for age. Pain: Denies pain. EENT: No signs and/or symptoms were reported regarding the EENT system. Neuro: Level of Consciousness is awake, alert, Oriented to person, place. Neuro: Reports a syncopal episode. Cardiovascular: Capillary refill < 3 seconds Patient's skin is warm and dry. Respiratory: Airway is patent Respiratory effort is even, unlabored. GI: Abdomen is flat, non-distended. : No signs and/or symptoms were reported regarding the genitourinary system. Derm: No signs and/or symptoms reported regarding the dermatologic system. Musculoskeletal: No signs and/or symptoms reported regarding the musculoskeletal system. Historical: - Allergies: 11:20 No Known Allergies; ld1 - PMHx: 11:20 CHF; Hyperlipidemia; Hypertension; Lung Cancer; Seizures; ld1 - Immunization history:: Adult Immunizations up to date. - Infectious Disease History:: Denies. - Social history:: Smoking status: Patient denies any tobacco usage or history of. - Family history:: not pertinent. Screenin:36 [facility] ED Fall Risk Assessment (Adult) History of falling in the last 3 months, ld1 including since admission No falls in past 3 months (0 pts) Confusion or Disorientation No (0 pts) Intoxicated or Sedated No (0 pts) Impaired Gait No (0 pts) Mobility Assist Device Used No (0 pt) Altered Elimination No (0 pt) Score/Fall Risk Level 0 - 2 = Low Risk Oriented to surroundings, Maintained a safe environment, Educated pt \T\ family on fall prevention, incl call for assistance when getting out of bed, Assessed \T\ reinforced patient's understanding of fall precautions, Provided non-skid footwear, Hourly rounding (assess needs \T\ fall precautionary measures) done, Used ambulatory aids as needed (educated on \T\ assisted with), Used gait belt as appropriate. Abuse screen: Denies threats or abuse. Denies injuries from another. Nutritional screening: No deficits noted. Tuberculosis screening: No symptoms or risk factors identified. Assessment: 11:36 Reassessment: See triage assessment. Neuro: Level of Consciousness is awake, alert, ld1 Oriented to person, place. Cardiovascular: Capillary refill < 3 seconds Patient's skin is warm and dry. Rhythm is sinus rhythm. 13:00 Reassessment: Patient appears in no apparent distress at this time. No changes from ld1 previously documented assessment. Patient and/or family updated on plan of care and expected duration. Pain level reassessed. Patient states symptoms have improved. 14:29 Reassessment: Patient appears in no apparent distress at this time. No changes from ld1 previously documented assessment. Patient and/or family updated on plan of care and expected duration. Pain level reassessed. 18:02 Reassessment: Patient appears in no apparent distress at this time. No changes from ld1 previously documented assessment. Patient and/or family updated on plan of care and expected duration. Pain level reassessed. 18:42 Reassessment: Patient appears in no apparent distress at this time. No changes from ld1 previously documented assessment. Patient and/or family updated on plan of care and expected duration. Pain level reassessed. 20:35 General: Appears comfortable, Behavior is calm, cooperative. Pain: Denies pain. Neuro: ha1 Level of Consciousness is awake, alert, obeys commands, Oriented to person, place, situation. Cardiovascular: Capillary refill < 3 seconds Patient's skin is warm and dry. Respiratory: Airway is patent Respiratory effort is even, unlabored, Respiratory pattern is regular, symmetrical. EENT: MISSING EYE ON THE RIGHT SIDE . Derm: Skin is normal. Musculoskeletal: Vital Signs: 11:36 BP 130 / 105; Pulse 58; Resp 18; Pulse Ox 100% on R/A; ld1 13:10 BP 133 / 95; Pulse 69; Resp 15; Pulse Ox 98% ; ko1 14:29 BP 115 / 86; Pulse 62; Resp 18; Pulse Ox 97% on R/A; ld1 16:15 BP 98 / 61; Pulse 57; Resp 15; Pulse Ox 98% ; ko1 18:02 BP 113 / 45; Pulse 58; Resp 18; Pulse Ox 98% on R/A; ld1 18:42 BP 130 / 76; Pulse 64; Resp 18; Pulse Ox 97% on R/A; ld1 19:13 BP 130 / 70; Pulse 60; Resp 16; Temp 97.2(T); Pulse Ox 98% on R/A; ha1 20:37 BP 98 / 67; Pulse 65; Resp 17 S; Pulse Ox 98% on R/A; ha1 ED Course: 11:18 Patient arrived in ED. ld1 11:19 Naren Brower MD is Attending Physician. rt 11:20 Triage completed. ld1 11:20 Arm band placed on right wrist. ld1 11:21 No provider procedures requiring assistance completed. Maintain EMS IV. Dressing ld1 intact. Good blood return noted. Site clean \T\ dry. Gauge \T\ site: 22G LH. 11:36 Patient has correct armband on for positive identification. Placed in gown. Bed in low ld1 position. Call light in reach. Side rails up X2. clinical research monitor on. Pulse ox on. NIBP on. Door closed. Noise minimized. Warm blanket given. 11:36 Missed attempt(s): 20 gauge in right antecubital area. ld1 11:42 CT Head Brain wo Cont In Process Unspecified. EDMS 11:47 XRAY Chest (1 view) In Process Unspecified. EDMS 12:10 Aurea Shah, DAYANA is Primary Nurse. ld1 16:[address] [facility] as requested by pt. bd 16:50 Danny Lee MD is Hospitalizing Provider. rt 16:59 Repositioned patient. Cleaned of incontinence. Linen changed. Cleaned patient of ld1 incontinence - placed on purewick. 16:59 [facility] Sent. ld1 18:19 Christopher Medina MD is Hospitalizing Provider. rt 19:23 Inserted saline lock: 22 gauge in left antecubital area, using aseptic technique. Blood rv1 collected. 20:35 Provided Education on: NEED FOR ADMIT . ha1 20:35 Patient admitted, IV remains in place. ha1 Administered Medications: 12:10 Drug: NS 0.9% IV 1000 ml IV at 1 bolus Per protocol; 1000 mL bolus Route: IV; Rate: 1 ld1 bolus; Site: left hand; Medication: 20:35 VIS not applicable for this client. ha1 Outcome: 16:51 Decision to Hospitalize by Provider. rt 18:20 Decision to Hospitalize by Provider. rt 20:34 Admitted to Med/surg accompanied by tech, via stretcher, room 231, with chart, ha1 20:34 Condition: stable 20:34 Instructed on the need for admit, Demonstrated understanding of instructions, 20:37 Patient left the ED. ha1 Signatures: Dispatcher [employer] EDMS Shanti Valdovinos Lauren, RN RN ld1 Jeimy Blackwell RN RN ha1 Martine Galarza, DAYANA RN ko1 Naren Brower MD MD rt Nadine Ray rv1
--- NOTE | 2024-04-29 16:51 | EDPHYS ---
Physician Documentation [facility] Name: Domonique Herman Age: 83 yrs Sex: Female : 1940 Arrival Date: 04/29/2024 Time: 11:06 Bed 5 Private MD: ED Physician Naren Brower HPI: 04/29 11:26 This 83 yrs old Black Female presents to ER via EMS with complaints of Syncope. rt 11:26 Patient presents to the ED with syncope. Patient reportedly was feeling well this rt morning. Patient lost consciousness with family. EMS estimates that the patient was unconscious for 15 minutes, she did come to when she was in the ambulance. Patient denies any complaints currently. Symptoms are moderate in severity, no other aggravating or alleviating factors.. Historical: - Allergies: 11:20 No Known Allergies; ld1 - PMHx: 11:20 CHF; Hyperlipidemia; Hypertension; Lung Cancer; Seizures; ld1 - Immunization history:: Adult Immunizations up to date. - Infectious Disease History:: Denies. - Social history:: Smoking status: Patient denies any tobacco usage or history of. - Family history:: not pertinent. ROS: 11:26 Unable to obtain ROS due to baseline dementia, rt Exam: 11:26 Constitutional: This is a well developed, well nourished patient who is awake, alert, rt and in no acute distress. Head/Face: Normocephalic, atraumatic. Chest/axilla: Normal chest wall appearance and motion. Nontender with no deformity. No lesions are appreciated. Cardiovascular: Regular rate and rhythm with a normal S1 and S2. No gallops, murmurs, or rubs. Normal PMI, no JVD. No pulse deficits. Respiratory: Lungs have equal breath sounds bilaterally, clear to auscultation and percussion. No rales, rhonchi or wheezes noted. No increased work of breathing, no retractions or nasal flaring. Abdomen/GI: Soft, non-tender, with normal bowel sounds. No distension or tympany. No guarding or rebound. No evidence of tenderness throughout. Skin: Warm, dry with normal turgor. Normal color with no rashes, no lesions, and no evidence of cellulitis. MS/ Extremity: Pulses equal, no cyanosis. Neurovascular intact. Full, normal range of motion. Neuro: Awake and alert, GCS 15, oriented to person, place, time, and situation. Cranial nerves II-XII grossly intact. Motor strength 5/5 in all extremities. Sensory grossly intact. Cerebellar exam normal. Normal gait. 12:06 ECG was reviewed by the Attending Physician. rt Vital Signs: 11:36 BP 130 / 105; Pulse 58; Resp 18; Pulse Ox 100% on R/A; ld1 13:10 BP 133 / 95; Pulse 69; Resp 15; Pulse Ox 98% ; ko1 14:29 BP 115 / 86; Pulse 62; Resp 18; Pulse Ox 97% on R/A; ld1 16:15 BP 98 / 61; Pulse 57; Resp 15; Pulse Ox 98% ; ko1 18:02 BP 113 / 45; Pulse 58; Resp 18; Pulse Ox 98% on R/A; ld1 18:42 BP 130 / 76; Pulse 64; Resp 18; Pulse Ox 97% on R/A; ld1 19:13 BP 130 / 70; Pulse 60; Resp 16; Temp 97.2(T); Pulse Ox 98% on R/A; ha1 20:37 BP 98 / 67; Pulse 65; Resp 17 S; Pulse Ox 98% on R/A; ha1 MDM: 11:19 Patient medically screened. rt 18:20 Differential Diagnosis: Syncope, dysrhythmia, ACS. Data reviewed: vital signs, nurses rt notes, lab test result(s), EKG, radiologic studies. Consideration of Admission/Observation Escalation of care including admission/observation considered. Consideration of Admission/Observation Patient was admitted/placed on observation. Management of patient was discussed with the following: Hospitalist: Agrees to admit. I considered the following discharge prescriptions or medication management in the emergency department Medications were administered in the Emergency Department. See MAR. Independent interpretation of the following test(s) in the Emergency Department CT Scan: My interpretation is No intracranial hemorrhage seen on interpretation of CT scan images. Care significantly affected by the following chronic conditions: Congestive Heart Failure. Counseling: I had a detailed discussion with the patient and/or guardian regarding the historical points, exam findings, and any diagnostic results supporting the discharge/admit diagnosis, lab results, radiology results, the need for further work-up and treatment in the hospital. Response to treatment: the patient's symptoms have markedly improved after treatment. 04/29 11:19 Order name: Basic Metabolic Panel; Complete Time: 12:56 rt 04/29 11:19 Order name: CBC with Diff; Complete Time: 12:56 rt 04/29 11:19 Order name: LFT's; Complete Time: 12:56 rt 04/29 11:19 Order name: Magnesium; Complete Time: 12:56 rt 04/29 11:19 Order name: Troponin HS; Complete Time: 12:56 rt 04/29 11:19 Order name: UAM; Complete Time: 17:05 rt 04/29 18:02 Order name: Troponin High Sensitivity rt 04/29 18:31 Order name: Urinalysis w/ reflexes EDMS 04/29 11:19 Order name: XRAY Chest (1 view); Complete Time: 12:56 rt 04/29 11:19 Order name: CT Head Brain wo Cont; Complete Time: 12:56 rt 04/29 18:27 Order name: Chest For Pe Angio EDMS 04/29 18:31 Order name: CONS Physician Consult EDGA 04/29 18:31 Order name: Physical Therapy Consult EDGA 04/29 11:19 Order name: Cardiac monitoring; Complete Time: 11:37 rt 04/29 11:19 Order name: EKG - Nurse/Tech; Complete Time: 11:56 rt 04/29 11:19 Order name: IV Saline Lock; Complete Time: 11:37 rt 04/29 11:19 Order name: Labs collected and sent; Complete Time: 11:37 rt 04/29 11:19 Order name: O2 Per Protocol; Complete Time: 11:21 rt 04/29 11:19 Order name: O2 Sat Monitoring; Complete Time: 11:22 rt EC:06 Rate is 60 beats/min. Rhythm is regular, A fib with No ectopy. QRS [place] is Normal. QRS rt interval is normal. QT interval is normal. No Q waves. Administered Medications: 12:10 Drug: NS 0.9% IV 1000 ml IV at 1 bolus Per protocol; 1000 mL bolus Route: IV; Rate: 1 ld1 bolus; Site: left hand; Disposition Summary: 04/29/24 18:20 Hospitalization Ordered Notes: Hospitalization Status: Observation(04/29/24 18:20) rt Provider: Christopher Medina(04/29/24 18:20) rt Location: Telemetry/MedSurg (observation)(04/29/24 18:20) rt Condition: Stable(04/29/24 18:20) rt Problem: new(04/29/24 18:20) rt Symptoms: have improved(04/29/24 18:20) rt Bed/Room Type: Standard(04/29/24 18:20) rt Room Assignment: 231(04/29/24 18:51) bd Diagnosis - Altered mental status rt - Syncope rt - Elevated troponin rt Forms: - Medication Reconciliation Form rt - SBAR form rt - Leadership Thank You Letter rt Signatures: Dispatcher [employer] EDMS FernandoShanti romero Aurea Rizvi RN RN ld1 Naren Brower MD MD rt Corrections: (The following items were deleted from the chart) 11:20 11:20 Chest Single View+RAD.RAD.BRZ ordered. EDMS EDMS 11:20 11:20 Head Brain Wo Cont+CT.RAD.BRZ ordered. EDMS EDMS 16:52 16:51 Differential Diagnosis: A-fib, dysrhythmia, electrolyte disturbance, acute rt coronary syndrome, rt 16:52 16:51 Data reviewed: vital signs, nurses notes, lab test result(s), EKG, radiologic rt studies, rt 16:52 16:51 Inpatient Admission rt rt 16: 16:51 Lee, Danny rt rt 16: 16:51 Telemetry/MedSurg (Inpatient) rt rt 16:52 16:51 Stable rt rt 16:52 16:51 new rt rt 16:52 16:51 have improved rt rt 16:52 16:51 Standard rt rt 16:52 16:51 rt rt 16: 16:51 Chest pain, unspecified rt rt 16: 16:51 Atrial fibrillation with rapid ventricular rate rt rt 16:53 16:51 Consideration of Admission/Observation Patient was admitted/placed on rt observation. rt 16:53 16:51 Management of patient was discussed with the following: Powderer: Discussed rt with patient's commercial credit analyst, recommends admission. rt 16:53 16:51 Independent interpretation of the following test(s) in the Emergency Department rt X-Ray: My interpretation is No pneumonia seen on interpretation of x-ray images. rt 16:53 16:51 Test considered but Not performed: CT: Low suspicion for pulmonary embolism, CT rt angiogram not indicated. rt 16:53 16:51 Care significantly affected by the following chronic conditions: Congestive Heart rt Failure, rt 1653 16:51 Counseling: I had a detailed discussion with the patient and/or guardian rt regarding the historical points, exam findings, and any diagnostic results supporting the discharge/admit diagnosis, lab results, radiology results, the need for further work-up and treatment in the hospital, rt 16 16:51 Response to treatment: the patient's symptoms have markedly improved after rt treatment, rt 18:51 18:20 rt bd
[2024-04-29 17:04] LABS: Specific Gravity 1.007 (1.005-1.030); Urine Bacteria <20 /HPF (<20); Urine Bilirubin NEGATIVE (Negative); Urine Blood Negative (Negative); Urine Clarity Extremely Turbid (Clear); Urine Color Light-Yellow (Yellow); Urine Culture Reflex Order NOT NEEDED; Urine Glucose NEGATIVE (Negative); Urine Ketones NEGATIVE (Negative); Urine Micro Reflex YN NO BILL MICROSCOPIC; Urine Nitrite NEGATIVE (Negative); Urine Protein NEGATIVE (Negative); Urine RBC <5 /HPF (None Seen); Urine Urobilinogen Normal (Normal); Urine WBC <5 /HPF (<5); Urine pH 7.5 (5.0-7.0)
[2024-04-29] MEDS ORDERED: ACETAMINOPHEN 325 MG TABLET PO PRN (18:25)
[2024-04-29] MEDS ORDERED: ONDANSETRON 4 MG/2 ML VIAL IV PRN (18:25)
--- NOTE | 2024-04-29 18:32 | P.HP ---
Certification for Inpatient Patient admitted to: Observation With expected LOS: <2 Midnights Practitioner: I am a practitioner with admitting privileges, knowledge of patient current condition, hospital course, and medical plan of care. Services: Services provided to patient in accordance with Admission requirements found in Title 42 Section 412.3 of the Code of Federal Regulations Patient History Date of Service: 04/29/24 Reason for admission: Syncope History of Present Illness: 83 yrs old Female with past medical history of hypertension, hyperlipidemia, CHF, lung cancer, seizure disorder, dementia, diabetes presents to ER with complaints of Syncope. Patient reportedly was feeling well this morning. Patient is a poor historian hence most of the history is obtained from the chart review and also talking to the ER physician and the family member at the bedside. Patient was going to eat breakfast and was getting up to the table and all of a sudden she passed out. Patient denied any chest pain or shortness of breath or palpitations. Denies any shortness of breath. Family member states that the patient was unconscious for 15 minutes. No seizure-like activities. Management was called and EMS brought her to the ER. Patient did not had any complaints. Patient was assessed in the ER and is admitted for further management of possible syncope Allergies No Known Allergies Allergy (Verified 04/26/18 05:50) Home medications list reviewed: Yes (83-year-old female with a past medical history of) Home Medications: Apixaban [Eliquis] 5 mg PO DAILY 04/26/18 Aspirin 1 pill PO DAILY 04/26/18 Furosemide 1 pill PO DAILY 04/26/18 Levetiracetam [Keppra] 100 mg PO BID 04/26/18 Potassium Chloride [Klor-Con 10] 1 pill PO DAILY 04/26/18 Simvastatin 1 pill PO BEDTIME 04/26/18 Sitagliptin Phosphate [Januvia] 100 mg PO DAILY 04/26/18 carvediloL [Coreg*] 1 pill PO DAILY 04/26/18 Amox Tr/Potassium Clavulanate [Augmentin 250-62.5 Tab Chew] 1 each PO BID #10 tab.chew 04/27/18 Lacosamide [Vimpat*] 150 mg PO BID #180 tablet 04/27/18 - Past Medical/Surgical History Diabetic: Yes Past Medical History: Reviewed- Non-Contributory -: Lung CA -: hyperlipidemia -: HTN -: seizure disorder -: DM Past Surgical History: Reviewed- Non-Contributory - Social History Smoking Status: Former smoker Alcohol use: No CD- Drugs: No Caffeine use: No Review of Systems 10-point ROS is otherwise unremarkable Physical Examination - Vital Signs Temperature: 97.8 F Blood Pressure: 138/72 Pulse: 88 Respirations: 18 Pulse Ox (%): 94 - Physical Exam General: Alert, In no apparent distress, Oriented x1 HEENT: Atraumatic, Normocephalic Neck: Supple, JVD not distended Respiratory: Clear to auscultation bilaterally, Normal air movement Cardiovascular: Normal S1 S2, Irregular heart rate/rhythm Capillary refill: <2 Seconds Gastrointestinal: Soft and benign, W/out hepatosplenomegaly Musculoskeletal: No clubbing, No swelling Integumentary: No rashes, No significant lesion Neurological: Sensation intact, Cranial nerves 3-12 intact, Normal reflexes 2+ Lymphatics: No axilla or inguinal lymphadenopathy - Studies Laboratory Data (last 24 hrs) 04/29/24 04/29/24 11:34 11:34 WBC 4.00 L Hgb 13.0 Hct 38.9 Plt Count 132 L Sodium 139 Potassium 3.6 BUN 10 Creatinine 0.79 Glucose 106 Magnesium 2.1 Total Bilirubin 1.1 H AST 19 ALT 17 Alkaline Phosphatase 77 Assessment and Plan - Problems (Diagnosis) (1) Syncope and collapse Current Visit: Yes Status: Acute (2) Syncope Current Visit: Yes Status: Acute Plan: Syncope Loss of consciousness [address] head was negative for any acute changes Monitor under telemetry Hypertension Antihypertensives titrated Continue home medications and titrate as needed Hyperlipidemia Continue statin Diabetes Insulin sliding scale Accu-Chek before every meal and at bedtime NSTEMI possibly type II due to hypertensive urgency Will trend cardiac enzymes Will monitor telemetry Started on aspirin and statin EKG did not show any acute changes sinus ST-T suggestive of ischemia Patient denies any chest pain Will get an echocardiogram Cardiology consult History of seizure disorder Continue home medications and titrate as needed Seizure precautions History of lung cancer CT chest ordered to rule out PE and to rule out any residual mass CT was inconclusive for PE patient had right-sided lung cancer Was On Eliquis will continue Eliquis GI/DVT prophylaxis Advanced directive full code Discharge Plan: Home Plan to discharge in: 48 Hours - Advance Directives Does patient have a Living Will: No Does patient have a Durable POA for Healthcare: No - Code Status/Comfort Care Code Status: Full Code Time Spent Managing Pts Care (In Minutes): 48
[2024-04-29] MEDS: ENOXAPARIN 40 MG/0.4 ML SQ SCH (20:00)
--- NOTE | 2024-04-29 20:02 | RAD REPORT ---
EXAM DESCRIPTION: CT - Chest For Pe Angio - 04/29/2024 7:39 pm CLINICAL HISTORY: syncope/chest pain COMPARISON: None. TECHNIQUE: Dynamically enhanced axial 3 mm thick images of the chest were obtained during administra tion of 100 mL Isovue 370 IV contrast. Coronal and oblique reconstruction images were generated and r eviewed. Exam utilizes a protocol for optimal evaluation of pulmonary arterial tree. Maximum intensity projections 3D imaging was utilized All CT scans are performed using dose optimization technique as appropriate and may include automated exposure control or mA/KV adjustment according to patient size. FINDINGS: Examination of peripheral arteries is suboptimal secondary to respiratory motion artifact No left pulmonary emboli. No main right pulmonary emboli. Right upper lobe pulmonary arteries are not opacified. There is diminished opacification subsegmental right lower lobe pulmonary artery branches . A thoracic aortic aneurysm is not noted. Small right pleural effusion. A pericardial effusion is not seen. A lung consolidation is not present. Old right rib fractures IMPRESSION: Diminished opacification subsegmental right lower lobe pulmonary arterial branches. This probably is secondary to artifact from respiratory motion. Pulmonary emboli can have a similar appea marisela however. Non opacification of right upper lobe pulmonary arteries. This would be a normal finding if the patie nt has had a lobectomy. If the patient has not had right upper lobe surgery then this would suspiciou s for pulmonary embolus
[2024-04-29 21:32] VITALS: BMI 24.9
[2024-04-29] MEDS: NA CHLORIDE 0.9% 1,000 ML IV SCH (23:07)
[2024-04-30 03:37] LABS: Absolute Eosinophils 0.1 K/uL (0-0.5); Absolute Lymphocytes (CBC) 1.5 K/uL (0.7-4.9); Absolute Monocytes 0.6 K/uL (0.1-1.3); Absolute Neutrophil 2.4 K/uL (1.8-8.0); Basophils % 0.8 % (0-1.3); Eosinophils % 1.4 % (0-4.4); Hematocrit 38.7 % (36.0-45.0); Hemoglobin 12.8 g/dL (12.0-15.0); MCH 30.6 pg (27.0-35.0); MCHC 33.1 g/dL (32.0-36.0); MCV 92.5 fL (80-100); Monocytes % 13.3 % (3.3-12.3); Neutrophils % 51.5 % (41.7-73.7); Platelets 137 thou/uL (152-406); RBC Red Blood Cell Count 4.19 M/uL (3.86-4.86); Red Cell Distribution Width 14.3 % (12.1-15.2)
[2024-04-30 03:48] LABS: Anion Gap 6.5 mEq/L (5.0-15.0); Potassium 3.5 mEq/L (3.5-5.1)
[2024-04-30 08:50] VITALS: BP 126/65; TEMP 97.6
[2024-04-30] MEDS: ASPIRIN 81 MG CHEWABLE TABLET PO SCH (09:00)
[2024-04-30] MEDS ORDERED: carvediloL 12.5 MG TAB PO SCH (09:00)
[2024-04-30] MEDS ORDERED: HOME MED 1 EA UNK (Levetiracetam [Keppra] 1,000 MG Tablet) PO SCH (09:00)
[2024-04-30] MEDS: levETIRAcetam 500 MG TAB PO SCH (09:00)
[2024-04-30] MEDS: LACOSAMIDE 50 MG TABLET PO SCH (09:00)
[2024-04-30] MEDS: carvediloL 12.5 MG TAB PO ONE (09:00)
--- NOTE | 2024-04-30 11:23 | P.CNS ---
Date of Consult: 04/30/24 Chief Complaint: Syncope History of Present Illness: Patient with PMH of atrial fibrillation, HTN, HLD and heart failure presented to hospital after syncope episode, patient is not a great historian but denies chest pain, no palpitations, no SOB, family wanted patient to leave so interview was short and they wanted to take patient to [place] where her care is. Allergies No Known Allergies Allergy (Verified 04/26/18 05:50) Home Medications: Apixaban [Eliquis] 5 mg PO DAILY 04/26/18 Aspirin 1 pill PO DAILY 04/26/18 Furosemide 1 pill PO DAILY 04/26/18 Levetiracetam [Keppra] 100 mg PO BID 04/26/18 Potassium Chloride [Klor-Con 10] 1 pill PO DAILY 04/26/18 Simvastatin 1 pill PO BEDTIME 04/26/18 Sitagliptin Phosphate [Januvia] 100 mg PO DAILY 04/26/18 carvediloL [Coreg*] 1 pill PO DAILY 04/26/18 Amox Tr/Potassium Clavulanate [Augmentin 250-62.5 Tab Chew] 1 each PO BID #10 tab.chew 04/27/18 Lacosamide [Vimpat*] 150 mg PO BID #180 tablet 04/27/18 - Past Medical/Surgical History Diabetic: Yes -: Lung CA -: hyperlipidemia -: HTN -: seizure disorder -: DM - Social History Alcohol use: No CD- Drugs: No Caffeine use: No Review of Systems 10-point ROS is otherwise unremarkable Physical Examination Temp Pulse Resp BP Pulse Ox 97.6 F 54 16 126/65 97 04/30/24 08:00 04/30/24 08:00 04/30/24 08:00 04/30/24 08:00 04/30/24 08:00 General: Alert, In no apparent distress HEENT: Atraumatic, PERRLA, Mucous membr. moist/pink, EOMI, Sclerae nonicteric Neck: Supple, 2+ carotid pulse no bruit, No LAD, Without JVD or thyroid abnormality Respiratory: Clear to auscultation bilaterally, Normal air movement Cardiovascular: Regular rate/rhythm, Normal S1 S2 Gastrointestinal: Normal bowel sounds, No tenderness Musculoskeletal: No tenderness Integumentary: No rashes Neurological: Normal gait, Normal speech, Normal tone, Normal affect Lymphatics: No axilla or inguinal lymphadenopathy Laboratory Data (last 24 hrs) 04/29/24 04/29/24 11:34 11:34 WBC 4.00 L Hgb 13.0 Hct 38.9 Plt Count 132 L Sodium 139 Potassium 3.6 BUN 10 Creatinine 0.79 Glucose 106 Magnesium 2.1 Total Bilirubin 1.1 H AST 19 ALT 17 Alkaline Phosphatase 77 - Problems (1) Atrial fibrillation Status: Acute Plan: Tele was reviewed and patient is in atrial fibrillation with slow RVR, no pauses. continue Eliquis 5 mg po BID Continue Coreg 12.5 mg po BID (2) HTN (hypertension) Status: Acute Plan: continue coreg (3) Syncope Status: Acute Plan: unsure of etiology, patient will need outpatient event monitor through their live truck technician. no arrhythmia noted overnight.
[2024-04-30 11:25] VITALS: O2SAT 97
[2024-04-30] MEDS ORDERED: ATORVASTATIN 20 MG TAB PO SCH (21:00)
--- NOTE | 2024-05-01 13:55 | EKG ---
Test Date: 2024-04-29 Test Time: 11:52:26 Cancer Registry Coordinator: Zachariah PERLA MEASUREMENT RESULTS: Intervals: Rate: 60 [place]: QRSD: 98 QT: 436 QTc: 436 [place]: P: IA: QRS: 36 T: 113 INTERPRETIVE STATEMENTS: Atrial fibrillation Low voltage QRS Cannot rule out Anterior infarct, age undetermined Abnormal ECG Compared to ECG 04/27/2018 02:12:59 Low QRS voltage now present Myocardial infarct finding now present Intraventricular conduction delay no longer present T-wave abnormality no longer present Electronically Signed On 05-01-24 13:50:45 CDT by Serafin Hurd
--- NOTE | 2024-05-01 19:08 | P.DS ---
Admission Date: 04/29/24 Discharge Date: 05/01/24 Disposition: AMA-LEFT AGAINST MEDICAL ADVIC Discharge Condition: FAIR Reason for Admission: Syncope - Problems (1) Seizure disorder Status: Acute (2) Atrial fibrillation Status: Acute (3) HTN (hypertension) Status: Acute Brief History of Present Illness: 83 yrs old Female with past medical history of hypertension, hyperlipidemia, CHF, lung cancer, seizure disorder, dementia, diabetes was brought to the ER because she passed out. According to report patient suddenly passed out while trying to get up from a table. No reported chest pain or shortness of breath or palpitations. Family member states that the patient was unconscious for 15 m inutes which is consistent with seizures but no seizure-like activities was witnessed. Patient was assessed in the ER, head CT was negative for any acute changes. Patient was hospitalized for further management. Hospital Course: Patient was placed under observation on the medical floor and her oral antiepileptics including lacosamide and Keppra were resumed. Keppra level was ordered and neurology consulted to evaluate patient. Case was discussed with neurology Dr. Potts who recommended routine EEG to be done. I met with the patient and her family. Patient's family declined routine EEG and further evaluation and care here. They mention patient already had multiple tests done for her seizures a few weeks ago said they would rather leave the hospital and go to [facility] to be evaluated by her neurology team. Family signed patient out AGAINST MEDICAL ADVICE. Vital Signs/Physical Exam: Temp Pulse Resp BP Pulse Ox 97.6 F 54 16 126/65 97 04/30/24 08:00 04/30/24 08:00 04/30/24 08:00 04/30/24 08:00 04/30/24 08:00 Laboratory Data at Discharge: WBC 4.60 thou/uL (4.3-10.9) 04/30/24 03:20 Hgb 12.8 g/dL (12.0-15.0) 04/30/24 03:20 Hct 38.7 % (36.0-45.0) 04/30/24 03:20 Plt Count 137 thou/uL (152-406) L 04/30/24 03:20 Sodium 139 mEq/L (136-145) 04/30/24 03:20 Potassium 3.5 mEq/L (3.5-5.1) 04/30/24 03:20 BUN 10 mg/dL (7-18) 04/30/24 03:20 Creatinine 0.62 mg/dL (0.55-1.02) 04/30/24 03:20 Glucose 87 mg/dL (74-106) 04/30/24 03:20 Magnesium 2.1 mg/dL (1.6-2.4) 04/29/24 11:34 Total Bilirubin 1.1 mg/dL (0.2-1.0) H 04/29/24 11:34 AST 19 U/L (15-37) 04/29/24 11:34 ALT 17 U/L (13-56) 04/29/24 11:34 Alkaline Phosphatase 77 U/L (45-117) 04/29/24 11:34 Home Medications: Apixaban [Eliquis] 5 mg PO DAILY 04/26/18 Aspirin 1 pill PO DAILY 04/26/18 Furosemide 1 pill PO DAILY 04/26/18 Levetiracetam [Keppra] 100 mg PO BID 04/26/18 Potassium Chloride [Klor-Con 10] 1 pill PO DAILY 04/26/18 Simvastatin 1 pill PO BEDTIME 04/26/18 Sitagliptin Phosphate [Januvia] 100 mg PO DAILY 04/26/18 carvediloL [Coreg*] 1 pill PO DAILY 04/26/18 Amox Tr/Potassium Clavulanate [Augmentin 250-62.5 Tab Chew] 1 each PO BID #10 tab.chew 04/27/18 Lacosamide [Vimpat*] 150 mg PO BID #180 tablet 04/27/18
== END 2024-04-30 11:10 | disposition left against medical advice (07) ==
LOC: ER 11:06 → ERHOLD 18:25 → 2ND 20:17
PROVIDERS: ADMIT Family Medicine; ATTEND Internal Medicine
DX: R55 Syncope and collapse (principal); I48.11 Longstanding persistent atrial fibrillation; I50.9 Heart failure, unspecified; I10 Essential (primary) hypertension; E78.5 Hyperlipidemia, unspecified; R41.82 Altered mental status, unspecified; R79.89 Other specified abnormal findings of blood chemistry; R56.9 Unspecified convulsions; F03.90 Unspecified dementia, unspecified severity, without behavioral disturbance, psychotic disturbance, mood disturbance, and anxiety; E11.9 Type 2 diabetes mellitus without complications; Z85.118 Personal history of other malignant neoplasm of bronchus and lung; Z79.01 Long term (current) use of anticoagulants
CPT/HCPCS: 93005; 85025 ×2; 81001; 80048 ×2; 36415 ×2; 83735; 80076; 84484 ×3; 70450; 71275; 71045; 94760; 99285; Q9967; J7030 ×2; G0378; J1650